=== PATIENT | male | born 2000 | race Two or more races ===

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

== ENCOUNTER 2018-12-30 18:56 | Emergency (ER) | payer MEDICAID ==
[~2018-12-30] VITALS: Ht 170.2 cm; Wt 85.7 kg
[2018-12-30 19:17] VITALS: Ht 170.2 cm; Wt 85.7 kg
[2018-12-30 23:33] VITALS: BP 138/69
== END 2018-12-30 23:34 | disposition home or self-care (01) ==
LOC: ED 18:56
DX: J06.9 Acute upper respiratory infection, unspecified (principal); I88.9 Nonspecific lymphadenitis, unspecified
CPT/HCPCS: 86308; J0696; J7512